=== PATIENT | female | born 2000 | race Caucasian/White ===

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

== ENCOUNTER 2019-01-21 21:24 | Emergency (ER) | payer MEDICAID ==
[~2019-01-21] VITALS: Ht 157 cm; Wt 90.7 kg
[~2019-01-21 21:24] MED LIST changes: +HYDR-3812 PO; +LEVO500T2 PO; +PRD20T PO
--- NOTE | 2019-01-21 23:09 | ED Abdominal Pain ---
General Chief Complaint: Abdominal/GI Problems Stated Complaint: ABD PAIN Nursing Triage Note: PT AMBULATE TO ROOM FS OF WITH C/O ABD PAIN STARTING THIS AM. PT STATES THAT SHE HAS HAD ABD PAIN X3 OVER THE LAST FEW YEARS AND NO ONE CAN FIGURE OUT WHAT IS CAUSING IT. PT STATES SHE HAS TAKEN NOTHING FOR IT TODAY. Source of Information: Patient History of Present Illness Date Seen by Provider: Jan 21, 2019 Time Seen by Provider: 23:09 Initial Comments 18-year-old female presenting with complaints of diffuse abdominal pain. She has had similar pain frequently over the last few years. She has had previous evaluation of that and gotten conflicting diagnosis from different physicians. Today her pain started when she woke up this morning. It persisted throughout the day off and on. It was worse overnight and when she called the nurse line from her insurance card they recommended that she come to the emergency department. She denies any fever or chills. She has had nausea when the pain gets severe. There is been no vomiting. She denies having any vaginal discharge or bleeding. She had the last step of shot a few weeks ago. She has intermittent constipation and diarrhea. Allergies and Home Medications Allergies Coded Allergies: morphine (Verified Allergy, Severe, ANAPHYLAXIS, Pt tolerates Lortab w/o issue, 08/21/18) Cephalosporins (Verified Allergy, Mild, RASH, 08/17/18) Home Medications Alprazolam 0.5 Mg Tablet, 0.5 MG PO BID, (Reported) Dicyclomine HCl 20 Mg Tablet, 20 MG PO Q6H PRN for ABDOMINAL PAIN Prescribed by: MARISA NICHOLS on 01/22/19 014 Duloxetine HCl 30 Mg Capsule.dr, 30 MG PO BID, (Reported) Hydrocodone/Acetaminophen 1 Each Tablet, 1-2 TAB PO Q4H PRN for PAIN-MODERATE Prescribed by: TAHIR FLORES on 08/21/18 1226 Levofloxacin 500 Mg Tablet, 500 MG PO DAILY Prescribed by: TAIHR FLORES on 08/21/18 1226 Prednisone 20 Mg Tab, 20 MG PO UD 3 tabs orally x 2 days 2 tabs orally x 2 days 1 tab po daily x 2 days then off Prescribed by: TAHIR FLORES on 08/21/18 1226 Sulfamethoxazole/Trimethoprim 1 Each Tablet, 1 EACH PO BID Prescribed by: MARISA NICHOLS on 01/22/19 014 Patient Home Medication List Home Medication List Reviewed: Yes Review of Systems Review of Systems Constitutional: No chills, No fever, No malaise EENTM: No Symptoms Reported Respiratory: No Symptoms Reported Cardiovascular: No Symptoms Reported Gastrointestinal: See HPI Genitourinary: See HPI Musculoskeletal: no symptoms reported Skin: no symptoms reported Psychiatric/Neurological: Anxiety Past Waqlwil-Xjngzg-Vnqjdy Hx Past Med/Social Hx: Reviewed Nursing Past Med/Soc Hx Patient Social History 2nd Hand Smoke Exposure: Yes Recent Foreign Travel: No Contact w/Someone Who Travel: No Recent Infectious Disease Expo: No Recent Hopitalizations: No Physical Abuse: No Sexual Abuse: No Mistreated: No Fear: No Immunizations Up To Date Date of Influenza Vaccine: Dec 15, 2017 Seasonal Allergies Seasonal Allergies: No Past Medical History Surgeries: Yes (BACK AND SINUS ) Gallbladder Respiratory: No Cardiac: No Neurological: No Headaches /Migraines Reproductive Disorders: Yes (Abnormal uterine bleeding) Female Reproductive Disorders: Denies, Polycystic Ovarian Dis Sexually Transmitted Disease: No HIV/AIDS: No Genitourinary: Yes (ICS) Gastrointestinal: No Chronic Diarrhea Musculoskeletal: No Endocrine: No HEENT: No Loss of Vision: Denies Hearing Impairment: Denies Cancer: No Psychosocial: No Anxiety, Depression Integumentary: No Blood Disorders: No Adverse Reaction/Blood Tranf: No (HAS HAD BLOOD WITH NO REACTION) Physical Exam Vital Signs Vital Signs - First Documented 01/21/19 01/22/19 22:37 01:52 Temp 36.8 Pulse 90 Resp 18 B/P (MAP) 127/80 Pulse Ox 100 O2 Delivery Room Air Capillary Refill : Height/Weight/BMI Height: 5'2.00" Weight: 220lbs. 0.0oz. 99.998241ws; 36.00 BMI Method:Stated General Appearance: WD/WN, mild distress HEENT: pharynx normal Neck: non-tender, full range of motion, supple, normal inspection Respiratory: chest non-tender, lungs clear, normal breath sounds Cardiovascular: normal peripheral pulses, regular rate, rhythm Gastrointestinal: normal bowel sounds, soft, no pulsatile mass; No distended, No guarding, No rebound; tenderness (right upper quadrant and across her low pelvis); No mass Rectal: deferred Back: normal inspection, no CVA tenderness Neurologic/Psychiatric: alert, normal mood/affect, oriented x 3 Skin: normal color, warm/dry Progress/Results/Core Measures Results/Orders Lab Results Laboratory Tests Test 01/21/19 23:17 01/21/19 23:43 Range/Units Urine Color YELLOW Urine Clarity CLOUDY Urine pH 6.0 5-9 Urine Specific [place] 1.025 H 1.016-1.022 Urine Protein NEGATIVE NEGATIVE Urine Glucose (UA) NEGATIVE NEGATIVE Urine Ketones 1+ H NEGATIVE Urine Nitrite NEGATIVE NEGATIVE Urine Bilirubin 1+ H NEGATIVE Urine Urobilinogen 0.2 NORMAL MG/DL Urine Leukocyte Esterase NEGATIVE NEGATIVE Urine RBC (Auto) TRACE-L NEGATIVE Urine RBC 10-25 H /HPF Urine WBC 10-25 H /HPF Urine Squamous Epithelial Cells 25-50 H /HPF Urine Crystals NONE /LPF Urine Bacteria MODERATE H /HPF Urine Casts NONE /LPF Urine Mucus NEGATIVE /LPF Urine Yeast FEW H /HPF Urine Culture Indicated YES Urine Test NEGATIVE NEGATIVE White Blood Count 9.8 4.3-11.0 10^3/uL Red Blood Count 4.41 4.35-5.85 10^6/uL Hemoglobin 12.4 11.5-16.0 G/DL Hematocrit 38 35-52 % Mean Corpuscular Volume 86 80-99 FL Mean Corpuscular Hemoglobin 28 25-34 PG Mean Corpuscular Hemoglobin Concent 33 32-36 G/DL Red Cell Distribution Width 12.6 10.0-14.5 % Platelet Count 269 130-400 10^3/uL Mean Platelet Volume 10.5 H 7.4-10.4 FL Neutrophils (%) (Auto) 56 42-75 % Lymphocytes (%) (Auto) 34 12-44 % Monocytes (%) (Auto) 7 0-12 % Eosinophils (%) (Auto) 3 0-10 % Basophils (%) (Auto) 0 0-10 % Neutrophils # (Auto) 5.5 1.8-7.8 X 10^3 Lymphocytes # (Auto) 3.3 1.0-4.0 X 10^3 Monocytes # (Auto) 0.7 0.0-1.0 X 10^3 Eosinophils # (Auto) 0.3 0.0-0.3 10^3/uL Basophils # (Auto) 0.0 0.0-0.1 10^3/uL Sodium Level 140 135-145 MMOL/L Potassium Level 3.4 L 3.6-5.0 MMOL/L Chloride Level 102 98-107 MMOL/L Carbon Dioxide Level 26 21-32 MMOL/L Anion Gap 12 5-14 MMOL/L Blood Urea Nitrogen 12 7-18 MG/DL Creatinine 0.86 0.60-1.30 MG/DL Estimat Glomerular Filtration Rate > 60 BUN/Creatinine Ratio 14 Glucose Level 87 70-105 MG/DL Calcium Level 9.2 8.5-10.1 MG/DL Corrected Calcium 8.9 8.5-10.1 MG/DL Total Bilirubin 0.2 0.1-1.0 MG/DL Aspartate Amino Transf (AST/SGOT) 19 5-34 U/L Alanine Aminotransferase (ALT/SGPT) 22 0-55 U/L Alkaline Phosphatase 118 40-136 U/L Total Protein 7.4 6.4-8.2 GM/DL Albumin 4.4 3.2-4.5 GM/DL Lipase 20 8-78 U/L My Orders Orders - MARISA NICHOLS MD Ua Culture If Indicated (01/21/19 21:35) Hcg,Qualitative Urine (01/21/19 21:35) Comprehensive Metabolic Panel (01/21/19 23:23) Lipase (01/21/19 23:23) Ed Iv/Invasive Line Start (01/21/19 23:23) Cbc With Automated Diff (01/21/19 23:23) Ct Abdomen/Pelvis W (01/21/19 23:23) Ns Iv 1000 Ml (Sodium Chloride 0.9%) (01/21/19 23:24) Ketorolac Injection (Toradol Injection) (01/21/19 23:24) Iohexol Injection (Omnipaque 350 Mg/Ml 1 (01/21/19 23:45) Received Contrast (Hold Metformin- Contr (01/21/19 23:45) Ns (Ivpb) (Sodium Chloride 0.9% Ivpb Bag (01/21/19 23:45) Urine Culture (01/21/19 23:17) Dicyclomine Injection (Bentyl Injection) (01/21/19 23:57) Rx-Dicyclomine Capsule (Rx-Bentyl Capsul (01/22/19 01:31) Sulfamethoxazole/Trimet Ds Tab (Bactrim (01/22/19 01:31) Medications Given in ED Current Medications Medications Dose Ordered Sig/Damaso Route Start Time Stop Time Status Last Admin Dose Admin Iohexol 100 ml ONCE ONCE IV 01/21/19 23:45 01/21/19 23:46 DC 01/21/19 23:49 100 ML Sodium Chloride 100 ml ONCE ONCE IV 01/21/19 23:45 01/21/19 23:46 DC 01/21/19 23:48 100 ML Vital Signs/I&O 01/21/19 01/22/19 22:37 01:52 Temp 36.8 Pulse 90 78 Resp 18 19 B/P (MAP) 127/80 Pulse Ox 100 O2 Delivery Room Air Room Air Progress Progress Note #1: Progress Note Obtain basic labs as well as urinalysis. Ordered a CT scan of her abdomen and pelvis to evaluate for possible pathology such as: Colitis versus diverticulitis versus ascites or liver disease or other pathology that might be contributing to her abdominal pain. We will treat with IV fluids for hydration, Bentyl for pain and spasm, Toradol for pain. Progress Note #2: Progress Note On repeat evaluation the patient reports that her pain is down to 1 or 2 after treatment. Reviewed with her that the labs and all looked good other than her urinalysis had shown signs for infection. Her CT scan did not show any acute significant abnormality. Reassured patient that at least he was not having appendicitis or any signs of colitis, diverticulitis, pancreatitis or other acute pathology in her belly. Since the Bentyl hasn't seemed to help with her pain will discharge with a prescription for this. Counseled to check back with the clinic for continued concerns and that she may need to see a different GI doctor to get a definitive answer for her illness Diagnostic Imaging Diagonstic Imaging: CT Plain Films/CT/US/NM/MRI: abdomen, pelvis Comments No acute abdominal or pelvic pathology. Status post previous cholecystectomy. Read by radiologist Dr. Willy Cote. Departure Impression Primary Impression: Cystitis with hematuria Additional Impressions: Diarrhea Qualified Codes: R19.7 - Diarrhea, unspecified Abdominal cramping Disposition: HOME, SELF-CARE Condition: Stable Departure-Patient Inst. Decision time for Depature: 01:34 Referrals: GENESIS WATSON APRN (PCP/Family) Primary Care Physician Patient Instructions: Diarrhea and Traveler's Diarrhea, Adult (DC), Acute Abdomen (Belly Pain), Adult (DC), Urinary Tract Infection, Adult (DC) Add. Discharge Instructions: Try to stay well hydrated and get plenty of rest Follow up with clinic for continued concerns and they may want you to see GI again about your recurrent symptoms All discharge instructions reviewed with patient and/or family. Voiced understanding. Scripts Dicyclomine HCl (Dicyclomine HCl) 20 Mg Tablet 20 MG PO Q6H PRN for ABDOMINAL PAIN for 15 Days, #60 TAB 0 Refills Prov: MARISA NICHOLS MD 01/22/19 Sulfamethoxazole/Trimethoprim (Sulfamethoxazole-Tmp Ds Tablet) 1 Each Tablet 1 EACH PO BID for UTI for 7 Days, #14 TAB 0 Refills Prov: MARISA NICHOLS MD 01/22/19 Work/School Note: School/Childcare Release Date Seen in the Emergency Department: Jan 22, 2019 Time Dismissed from Emergency Department: 01:42 Return to School: Jan 25, 2019 Restrictions: No Restrictions MARISA NICHOLS MD Jan 21, 2019 23:09
[2019-01-21] MEDS ORDERED: NS IV 1000 ML 1,000 ML IV STA (23:24)
[2019-01-21] MEDS ORDERED: DICYCLOMINE 10 MG (BENTYL) CAP PO STA (23:24)
[2019-01-21] MEDS ORDERED: KETOROLAC 30 MG/ML VIAL IVP STA (23:24)
[2019-01-21 23:38] LABS: CLARITY,URINE CLOUDY; COLOR,URINE YELLOW
[2019-01-21 23:39] LABS: BACTERIA,URINE MODERATE /HPF; GLUCOSE, URINE (UA) NEGATIVE (NEGATIVE); KETONES,URINE 1+ (NEGATIVE); LEUKOCYTE ESTERASE ,URINE NEGATIVE (NEGATIVE); NITRITE,URINE NEGATIVE (NEGATIVE); PROTEIN,URINE NEGATIVE (NEGATIVE)
[2019-01-21 23:40] LABS: HCG,QUALITATIVE URINE NEGATIVE (NEGATIVE); SQUAMOUS EPITHELIAL CELL,UR 25-50 /HPF; YEAST,URINE FEW /HPF
[2019-01-21 23:43] LABS: BILIRUBIN,URINE 1+ (NEGATIVE)
[2019-01-21] MEDS ORDERED: HOLD METFORMIN - RECEIVED CONTRAST 20 ML VIAL IV SCH (23:45)
[2019-01-21] MEDS ORDERED: IOHEXOL 350 MG/ML 100 ML (OMNIPAQUE 350) VIAL IV ONE (23:45)
[2019-01-21] MEDS ORDERED: NS 100 ML (IVPB) BAG IV ONE (23:45)
[2019-01-21] MEDS ORDERED: DICYCLOMINE 10 MG/ML (BENTYL) 2 ML AMP IM STA (23:57)
[2019-01-22 00:01] LABS: HEMATOCRIT 38 % (35-52); HEMOGLOBIN 12.4 G/DL (11.5-16.0); MEAN CORPUSCULAR HEMOGLOBIN 28 PG (25-34); MEAN CORPUSCULAR HGB CONC 33 G/DL (32-36); MEAN CORPUSCULAR VOLUME 86 FL (80-99); WHITE BLOOD COUNT 9.8 10^3/uL (4.3-11.0)
[2019-01-22 00:02] LABS: BASOPHILS % (AUTO) 0 % (0-10); EOSINOPHILS # (AUTO) 0.3 10^3/uL (0.0-0.3); EOSINOPHILS % (AUTO) 3 % (0-10); LYMPHOCYTES # (AUTO) 3.3 X 10^3 (1.0-4.0); LYMPHOCYTES % (AUTO) 34 % (12-44); MEAN PLATELET VOLUME 10.5 FL (7.4-10.4); MONOCYTES # (AUTO) 0.7 X 10^3 (0.0-1.0); MONOCYTES % (AUTO) 7 % (0-12); NEUTROPHILS # (AUTO) 5.5 X 10^3 (1.8-7.8); NEUTROPHILS % (AUTO) 56 % (42-75); PLATELET COUNT 269 10^3/uL (130-400); RED CELL DISTRIBUTION WIDTH 12.6 % (10.0-14.5)
[2019-01-22 00:15] LABS: ALANINE AMINOTRANSFERASE 22 U/L (0-55); ALKALINE PHOSPHATASE 118 U/L (40-136); BILIRUBIN,TOTAL 0.2 MG/DL (0.1-1.0); BUN/CREATININE RATIO 14; CALCIUM 9.2 MG/DL (8.5-10.1); CARBON DIOXIDE 26 MMOL/L (21-32); CHLORIDE 102 MMOL/L (98-107); CREATININE SERUM 0.86 MG/DL (0.60-1.30); GFR ESTIMATED > 60; GLUCOSE 87 MG/DL (70-105); POTASSIUM 3.4 MMOL/L (3.6-5.0); SODIUM 140 MMOL/L (135-145); TOTAL PROTEIN 7.4 GM/DL (6.4-8.2)
[2019-01-22 00:16] LABS: ALBUMIN 4.4 GM/DL (3.2-4.5); LIPASE 20 U/L (8-78)
[2019-01-22] MEDS ORDERED: RX-DICYCLOMINE 10 MG (BENTYL) CAP PPK#4 PO STA (01:31)
[2019-01-22] MEDS ORDERED: TRIM/SULFAMETH 160/800 (SEPTRA DS) TAB PO STA (01:31)
[2019-01-22] MEDS ORDERED: DICY20TA10 PO (01:42)
[2019-01-22] MEDS ORDERED: SULF-222 PO (01:42)
--- NOTE | 2019-01-22 06:30 | Diagnostic Imaging Report ---
PROCEDURE: CT abdomen and pelvis with contrast. TECHNIQUE: Multiple contiguous axial images were obtained through the abdomen and pelvis after administration of intravenous contrast. Auto Exposure Controls were utilized during the CT exam to meet ALARA standards for radiation dose reduction. INDICATION: Right upper quadrant abdominal pain Comparison is made to the study of 05/12/2018. There is subcentimeter nodule seen in the left sub-diaphragmatic space similar to previous study. There is mild low density throughout the liver parenchyma with previous cholecystectomy again noted. No focal hepatic, pancreatic or splenic lesion is identified. Adrenal glands and kidneys are stable and unremarkable in appearance. There are multiple mildly prominent right lower quadrant lymph nodes which are not significantly changed. No focal inflammation or organized fluid collection is identified. Surgical findings are again noted with posterior thoracolumbar rods. IMPRESSION: No acute abnormality or adverse change is identified. Dictated by: Dictated on workstation # [id number]
== END 2019-01-22 01:52 | disposition home or self-care (01) ==
LOC: EDUNIT# 21:24 → ER FS 21:26
DX: N30.91 Cystitis, unspecified with hematuria (principal); R19.7 Diarrhea, unspecified; G43.909 Migraine, unspecified, not intractable, without status migrainosus; F41.9 Anxiety disorder, unspecified; F32.9 Major depressive disorder, single episode, unspecified; Z88.5 Allergy status to narcotic agent; Z88.1 Allergy status to other antibiotic agents; Z79.52 Long term (current) use of systemic steroids; Z77.22 Contact with and (suspected) exposure to environmental tobacco smoke (acute) (chronic)
CPT/HCPCS: 36415; 74177; 80053; 81000; 83690; 84703; 85025; 87088

== ENCOUNTER 2019-03-28 15:34 | Emergency (ER) | payer MEDICAID ==
[~2019-03-28] VITALS: Ht 157 cm; Wt 88.2 kg
[~2019-03-28 15:34] MED LIST changes: +DICY20TA10 PO; +SULF-222 PO
[2019-03-28] MEDS ORDERED: TRAZ-222 PO (16:06)
--- NOTE | 2019-03-28 16:24 | ED GI ---
General Chief Complaint: Rect Problems Stated Complaint: RECTAL BLEEDING Nursing Triage Note: PT CO OF RECTAL BLEEDING, STATES STARTED ABOUT 3 DAYS AGO, STATES HAS GOTTEN WORSE, BLEEDS WHEN NOT HAVING BM. DENIES PAIN. STATES DID HAVE BM THAT CAUSED PAIN WHEN BLEEDING STARTED Source of Information: Patient, Spouse Exam Limitations: No Limitations History of Present Illness Date Seen by Provider: Mar 28, 2019 Time Seen by Provider: 16:10 Initial Comments Patient presents to ER for chief complaint of 3 days of progressively worsening bright red blood per rectum. Mom has a history of Crohn's. She's had a colonoscopy by Dr. Luong in May 2018 did not reveal anything. She does not history of hemorrhoids or fissures. She's having no abdominal pain or rectal pain. No fevers nausea vomiting. No anal insertive intercourse. Allergies and Home Medications Allergies Coded Allergies: morphine (Verified Allergy, Severe, ANAPHYLAXIS, Pt tolerates Lortab w/o issue, 08/21/18) Cephalosporins (Verified Allergy, Mild, RASH, 08/17/18) Home Medications Duloxetine HCl 30 Mg Capsule.dr, 30 MG PO BID, (Reported) Omeprazole 40 Mg Capsule.dr, 40 MG PO DAILY Prescribed by: CUCA ROONEY on 03/28/19 9428 Patient Home Medication List Home Medication List Reviewed: Yes Review of Systems Review of Systems Constitutional: No chills, No fever EENTM: No Blurred Vision, No Double Vision Respiratory: Denies Cough, Denies Shortness of Air Cardiovascular: Denies Chest Pain, Denies Lightheadedness Gastrointestinal: See HPI, Blood Streaked Stools; Denies Constipated, Denies Diarrhea Genitourinary: Denies Burning, Denies Discharge Musculoskeletal: No back pain, No joint pain Past Okzvlfh-Npmoni-Zwwngj Hx Patient Social History Alcohol Use: Denies Use Recreational Drug Use: No Smoking Status: Never a Smoker 2nd Hand Smoke Exposure: Yes Recent Foreign Travel: No Contact w/Someone Who Travel: No Recent Infectious Disease Expo: No Recent Hopitalizations: No Physical Abuse: No Sexual Abuse: No Immunizations Up To Date Date of Influenza Vaccine: Dec 15, 2017 Seasonal Allergies Seasonal Allergies: No Past Medical History Surgeries: Yes (BACK AND SINUS ) Gallbladder Respiratory: No Cardiac: No Neurological: No Headaches /Migraines Reproductive Disorders: Yes (Abnormal uterine bleeding) Female Reproductive Disorders: Denies, Polycystic Ovarian Dis Sexually Transmitted Disease: No HIV/AIDS: No Genitourinary: Yes (ICS) Gastrointestinal: No Chronic Diarrhea Musculoskeletal: No Endocrine: No HEENT: No Loss of Vision: Denies Hearing Impairment: Denies Cancer: No Psychosocial: No Anxiety, Depression Integumentary: No Blood Disorders: No Adverse Reaction/Blood Tranf: No (HAS HAD BLOOD WITH NO REACTION) Physical Exam Vital Signs Vital Signs - First Documented 03/28/19 03/28/19 15:50 17:51 Temp 36.8 Pulse 91 Resp 18 B/P (MAP) 141/85 Pulse Ox 100 Capillary Refill : Height/Weight/BMI Height: 5'2.00" Weight: 220lbs. 0.0oz. [id number]; 35.00 BMI Method:Stated General Appearance: WD/WN, no apparent distress HEENT: PERRL/EOMI, normal ENT inspection, pharynx normal Respiratory: no respiratory distress, no accessory muscle use Cardiovascular: normal peripheral pulses, regular rate, rhythm Peripheral Pulses: 2+ Radial Pulses (R), 2+ Radial Pulses (L) Gastrointestinal: normal bowel sounds, non tender, soft Rectal: normal exam, normal rectal tone, heme negative stool Extremities: normal range of motion, non-tender, normal capillary refill Progress/Results/Core Measures Results/Orders Lab Results Laboratory Tests Test 03/28/19 16:40 Range/Units White Blood Count 7.7 4.3-11.0 10^3/uL Red Blood Count 4.78 4.35-5.85 10^6/uL Hemoglobin 13.5 11.5-16.0 G/DL Hematocrit 41 35-52 % Mean Corpuscular Volume 87 80-99 FL Mean Corpuscular Hemoglobin 28 25-34 PG Mean Corpuscular Hemoglobin Concent 33 32-36 G/DL Red Cell Distribution Width 12.9 10.0-14.5 % Platelet Count 347 130-400 10^3/uL Mean Platelet Volume 10.1 7.4-10.4 FL Neutrophils (%) (Auto) 45 42-75 % Lymphocytes (%) (Auto) 43 12-44 % Monocytes (%) (Auto) 8 0-12 % Eosinophils (%) (Auto) 3 0-10 % Basophils (%) (Auto) 0 0-10 % Neutrophils # (Auto) 3.5 1.8-7.8 X 10^3 Lymphocytes # (Auto) 3.3 1.0-4.0 X 10^3 Monocytes # (Auto) 0.6 0.0-1.0 X 10^3 Eosinophils # (Auto) 0.2 0.0-0.3 10^3/uL Basophils # (Auto) 0.0 0.0-0.1 10^3/uL My Orders Orders - CUCA ROONEY Occult Blood Stool (03/28/19 16:21) Cbc With Automated Diff (03/28/19 16:22) Vital Signs/I&O 03/28/19 03/28/19 15:50 17:51 Temp 36.8 Pulse 91 91 Resp 18 18 B/P (MAP) 141/85 Pulse Ox 100 Fecal Occult: Negative Progress Progress Note : Time: 17:45 Progress Note Rectal exam unremarkable. Physical occult blood test was negative. Hemoglobin is normal range. Follow-up with Dr. Luong who she has previous relationship with. Departure Impression Primary Impression: Bright red blood per rectum Disposition: 01 HOME, SELF-CARE Condition: Stable Departure-Patient Inst. Decision time for Depature: 17:46 Referrals: CAMRON COLE MD (PCP) Primary Care Physician GENESIS WATSON APRN (Family) Primary Care Physician SKYLA LUONG MD Patient Instructions: Bloody Stools, Adult (DC) Add. Discharge Instructions: Follow-up with Dr. Luong by calling his office and asking for an appointment. If you begin to have chest pain or shortness of breath and return to the ER. Omeprazole 40 mg daily for the next 4 weeks. All discharge instructions reviewed with patient and/or family. Voiced understanding. Scripts Omeprazole (Omeprazole) 40 Mg Capsule. 40 MG PO DAILY for 30 Days, #30 CAP 0 Refills Prov: CUCA ROONEY 03/28/19 Copy Copies To 1: SKYLA LUONG MD, TITUS J Mar 28, 2019 16:24
[2019-03-28 16:50] LABS: BASOPHILS % (AUTO) 0 % (0-10); EOSINOPHILS # (AUTO) 0.2 10^3/uL (0.0-0.3); EOSINOPHILS % (AUTO) 3 % (0-10); HEMATOCRIT 41 % (35-52); HEMOGLOBIN 13.5 G/DL (11.5-16.0); LYMPHOCYTES # (AUTO) 3.3 X 10^3 (1.0-4.0); LYMPHOCYTES % (AUTO) 43 % (12-44); MEAN CORPUSCULAR HEMOGLOBIN 28 PG (25-34); MEAN CORPUSCULAR HGB CONC 33 G/DL (32-36); MEAN CORPUSCULAR VOLUME 87 FL (80-99); MEAN PLATELET VOLUME 10.1 FL (7.4-10.4); MONOCYTES # (AUTO) 0.6 X 10^3 (0.0-1.0); MONOCYTES % (AUTO) 8 % (0-12); NEUTROPHILS # (AUTO) 3.5 X 10^3 (1.8-7.8); NEUTROPHILS % (AUTO) 45 % (42-75); PLATELET COUNT 347 10^3/uL (130-400); RED CELL DISTRIBUTION WIDTH 12.9 % (10.0-14.5); WHITE BLOOD COUNT 7.7 10^3/uL (4.3-11.0)
[2019-03-28] MEDS ORDERED: OMEP40CA36 PO (17:48)
== END 2019-03-28 17:51 | disposition home or self-care (01) ==
LOC: EDUNIT# 15:34 → ER 15:35
DX: K62.5 Hemorrhage of anus and rectum (principal); G43.909 Migraine, unspecified, not intractable, without status migrainosus; F41.9 Anxiety disorder, unspecified; F32.9 Major depressive disorder, single episode, unspecified; Z88.5 Allergy status to narcotic agent; Z88.1 Allergy status to other antibiotic agents; Z77.22 Contact with and (suspected) exposure to environmental tobacco smoke (acute) (chronic)
CPT/HCPCS: 36415; 82274; 85025

== ENCOUNTER 2019-04-16 08:40 | Emergency (ER) | payer OTHER, MEDICAID ==
[~2019-04-16] VITALS: Ht 157.5 cm; Wt 88.6 kg
[~2019-04-16 08:40] MED LIST changes: +OMEP40CA27 PO; +TRZ50T PO
[2019-04-16] MEDS ORDERED: KETOROLAC 30 MG/ML VIAL IVP STA (09:16)
[2019-04-16] MEDS ORDERED: NS IV 1000 ML 1,000 ML IV STA (09:16)
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
[2019-04-16 09:39] LABS: BASOPHILS % (AUTO) 0 % (0-10); EOSINOPHILS % (AUTO) 1 % (0-10); HEMATOCRIT 40 % (35-52); HEMOGLOBIN 12.9 G/DL (11.5-16.0); LYMPHOCYTES % (AUTO) 25 % (12-44); MEAN CORPUSCULAR HEMOGLOBIN 29 PG (25-34); MEAN CORPUSCULAR HGB CONC 33 G/DL (32-36); MEAN CORPUSCULAR VOLUME 89 FL (80-99); MEAN PLATELET VOLUME 10.2 FL (7.4-10.4); MONOCYTES % (AUTO) 7 % (0-12); NEUTROPHILS # (AUTO) 7.4 X 10^3 (1.8-7.8); NEUTROPHILS % (AUTO) 67 % (42-75); PLATELET COUNT 277 10^3/uL (130-400); WHITE BLOOD COUNT 11.1 10^3/uL (4.3-11.0)
[2019-04-16 09:40] LABS: EOSINOPHILS # (AUTO) 0.2 10^3/uL (0.0-0.3); LYMPHOCYTES # (AUTO) 2.7 X 10^3 (1.0-4.0); MONOCYTES # (AUTO) 0.7 X 10^3 (0.0-1.0)
[2019-04-16 10:05] LABS: BILIRUBIN,URINE NEGATIVE (NEGATIVE); CLARITY,URINE CLEAR; COLOR,URINE DARK YELLOW; GLUCOSE, URINE (UA) NEGATIVE (NEGATIVE); KETONES,URINE NEGATIVE (NEGATIVE); LEUKOCYTE ESTERASE ,URINE NEGATIVE (NEGATIVE); NITRITE,URINE NEGATIVE (NEGATIVE); PH,URINE 5.5 (5-9); PROTEIN,URINE NEGATIVE (NEGATIVE); RBC,URINE 0-2 /HPF
[2019-04-16 10:06] LABS: BACTERIA,URINE TRACE /HPF; SQUAMOUS EPITHELIAL CELL,UR 25-50 /HPF; WBC,URINE 0-2 /HPF
[2019-04-16 10:18] LABS: ALANINE AMINOTRANSFERASE 24 U/L (0-55); ALBUMIN 4.3 GM/DL (3.2-4.5); ALKALINE PHOSPHATASE 117 U/L (40-136); BILIRUBIN,TOTAL 0.2 MG/DL (0.1-1.0); BUN/CREATININE RATIO 17; CALCIUM 9.4 MG/DL (8.5-10.1); CARBON DIOXIDE 24 MMOL/L (21-32); CHLORIDE 101 MMOL/L (98-107); CREATININE SERUM 0.52 MG/DL (0.60-1.30); GFR ESTIMATED > 60; GLUCOSE 92 MG/DL (70-105); SODIUM 138 MMOL/L (135-145); TOTAL PROTEIN 7.4 GM/DL (6.4-8.2)
[2019-04-16] MEDS ORDERED: IOHEXOL 350 MG/ML 100 ML (OMNIPAQUE 350) VIAL IV ONE (10:45)
[2019-04-16] MEDS ORDERED: NS 100 ML (IVPB) BAG IV ONE (10:45)
[2019-04-16] MEDS ORDERED: HOLD METFORMIN - RECEIVED CONTRAST 20 ML VIAL IV SCH (10:45)
[2019-04-16] MEDS ORDERED: CATHETER FLUSH 10 ML SYR IV PRN (10:45)
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
[2019-04-16] MEDS ORDERED: TETANUS,DIPTH,PERTUSS P/F (BOOSTRIX) 0.5 ML VIAL IM ONE (12:00)
[2019-04-16] MEDS ORDERED: ACHD5005 PO (12:02)
[2019-04-16 12:03] VITALS: BP 123/71
[2019-04-16] MEDS ORDERED: IBUP-1780 PO (12:04)
== END 2019-04-16 12:03 | disposition home or self-care (01) ==
LOC: EDUNIT# 08:40 → ER FS 08:42
DX: S20.219A Contusion of unspecified front wall of thorax, initial encounter (principal); S00.83XA Contusion of other part of head, initial encounter; S39.012A Strain of muscle, fascia and tendon of lower back, initial encounter; S60.012A Contusion of left thumb without damage to nail, initial encounter; R10.31 Right lower quadrant pain; G43.909 Migraine, unspecified, not intractable, without status migrainosus; F41.9 Anxiety disorder, unspecified; F32.9 Major depressive disorder, single episode, unspecified; R40.2142 Coma scale, eyes open, spontaneous, at arrival to emergency department; R40.2252 Coma scale, best verbal response, oriented, at arrival to emergency department; R40.2362 Coma scale, best motor response, obeys commands, at arrival to emergency department; Z23 Encounter for immunization; Z88.5 Allergy status to narcotic agent; Z88.1 Allergy status to other antibiotic agents; Z77.22 Contact with and (suspected) exposure to environmental tobacco smoke (acute) (chronic); V49.40XA Driver injured in collision with unspecified motor vehicles in traffic accident, initial encounter; Y92.411 Interstate highway as the place of occurrence of the external cause
CPT/HCPCS: 36415; 70450; 70486; 71260; 72125; 74177; 80053; 80320; 81000; 84703; 85025; 90715